=== PATIENT | male | born 1975 | race Caucasian/White ===

== ENCOUNTER 2022-04-06 10:45 | Inpatient (IN) | payer BC ==
[2022-04-09] MEDS ORDERED: Celecoxib 200 MG Cap PO ONE (08:30)
[2022-04-09] MEDS ORDERED: Acetaminophen 500 MG Tab PO ONE (08:30)
[2022-04-09] MEDS ORDERED: Dextrose 5%-Lactated Ringers 1,000 ML IV SCH (08:45)
[2022-04-09] MEDS ORDERED: Scopolamine 1.5 MG Transdermal Patch TOP SCH (08:45)
[2022-04-09] MEDS ORDERED: cefOXitin 2 GM in Sodium Chloride 0.9% 50 ML IV ONE (08:45)
[2022-04-09] MEDS: cefOXitin 2 GM Vial ONE ×3 (09:37→12:00)
[2022-04-09] MEDS ORDERED: fentaNYL 250 MCG/5 ML SDV ONE ×2 (09:42→10:45)
[2022-04-09] MEDS ORDERED: Glycopyrrolate 0.2 MG/ML 5 ML MDV ONE (09:43)
[2022-04-09] MEDS ORDERED: Ondansetron 4 MG/2 ML SDV ONE (09:43)
[2022-04-09] MEDS ORDERED: Propofol 200 MG/20 ML SDV ONE (09:43)
[2022-04-09] MEDS ORDERED: Dexamethasone 4 MG/ML SDV ONE (09:43)
[2022-04-09] MEDS ORDERED: Neostigmine Methylsulfate 1 MG/ML 5 ML Syringe ONE (09:43)
[2022-04-09] MEDS ORDERED: Rocuronium 50 MG/5 ML Vial ONE ×2 (09:43→10:43)
[2022-04-09] MEDS ORDERED: Succinylcholine 200 MG/10 ML MDV ONE (09:43)
[2022-04-09 09:45] LABS: ESTIMATED GFR 93 mL/min (>60)
[2022-04-09] MEDS ORDERED: Ketamine 21 MG in Sodium Chloride 0.9% 19.79 ML IV SCH (10:15)
[2022-04-09] MEDS ORDERED: Ketamine 500 MG/5 ML MDV IV SCH (10:15)
[2022-04-09] MEDS ORDERED: Sugammadex Sodium 200 MG/2 ML VIAL ONE (10:25)
[2022-04-09] MEDS ORDERED: Glucagon,Human Recombinant 1 MG Vial ONE (10:40)
[2022-04-09] MEDS ORDERED: Labetalol 20 MG/4 ML Syringe ONE (11:16)
[2022-04-09] MEDS ORDERED: Lactated Ringers 1,000 ML ONE (11:17)
[2022-04-09] MEDS ORDERED: hydrOXYzine HCL 100 MG/2 ML SDV IM ONE (12:52)
[2022-04-09] MEDS ORDERED: fentaNYL 50 MCG/ML SDV IVPUSH ONE (12:52)
[2022-04-09] MEDS ORDERED: Cyclobenzaprine 10 MG Tab PO PRN (14:24)
[2022-04-09] MEDS ORDERED: HYDROmorphone 1 MG/ML Syringe IV PRN (14:30)
[2022-04-09] MEDS ORDERED: Labetalol 20 MG/4 ML Syringe IVPUSH PRN (14:30)
[2022-04-09] MEDS ORDERED: Ondansetron 4 MG/2 ML SDV IVPUSH PRN (14:30)
[2022-04-09] MEDS ORDERED: Metoclopramide 10 MG/2 ML SDV IVPUSH PRN (14:30)
[2022-04-09] MEDS ORDERED: diphenhydrAMINE 50 MG/ML SDV IVPUSH PRN (14:30)
[2022-04-09] MEDS ORDERED: Albuterol/Ipratropium 3.0-0.5 MG/3 ML Neb Soln INH PRN (14:30)
[2022-04-09] MEDS ORDERED: hydrOXYzine HCL 100 MG/2 ML SDV IM PRN (14:30)
[2022-04-09] MEDS ORDERED: HYDROmorphone 0.5 MG/0.5 ML Syringe IVPUSH PRN (14:30)
[2022-04-09] MEDS ORDERED: Acetaminophen 500 MG Tab PO PRN (14:30)
[2022-04-09] MEDS ORDERED: Nitroglycerin 0.4 MG Tab.SL SL PRN (14:34)
[2022-04-09] MEDS: Albuterol/Ipratropium 3.0-0.5 MG/3 ML Neb Soln INH SCH ×2 (14:38→20:55)
[2022-04-09] MEDS ORDERED: Lactated Ringers 1,000 ML IV SCH (14:45)
[2022-04-09] MEDS: Dextrose 5%-Lactated Ringers 1,000 ML IV SCH ×2 (15:37→20:06)
[2022-04-09] MEDS: cefOXitin 2 GM in Sodium Chloride 0.9% 50 ML IV SCH ×2 (15:37→21:23)
[2022-04-09] MEDS ORDERED: MVI, Adult with Vitamin K 10 ML, Thiamine 200 MG, Zinc/Copper/Manganese/Selenium 1 ML i... IV SCH ×4 (16:00)
[2022-04-09] MEDS ORDERED: Pantoprazole 40 MG Vial IVPUSH SCH (16:00)
[2022-04-09] MEDS: Heparin Sodium 5,000 Units/ML Vial SUBCUT SCH (17:58)
[2022-04-09] MEDS: Acetaminophen 500 MG Tab PO SCH (21:11)
[2022-04-09] MEDS: atorvaSTATin 20 MG Tab PO SCH (21:12)
[2022-04-10] MEDS: Heparin Sodium 5,000 Units/ML Vial SUBCUT SCH ×3 (03:02→18:44)
[2022-04-10] MEDS: cefOXitin 2 GM in Sodium Chloride 0.9% 50 ML IV SCH ×4 (03:06→21:36)
[2022-04-10] MEDS ORDERED: Iopamidol 612 MG/ML 50 ML SDV PO ONE (04:47)
[2022-04-10 05:31] LABS: ESTIMATED GFR 68 mL/min (>60)
[2022-04-10] MEDS: Acetaminophen 500 MG Tab PO SCH ×3 (06:13→21:27)
[2022-04-10] MEDS: Albuterol/Ipratropium 3.0-0.5 MG/3 ML Neb Soln INH SCH ×4 (07:32→21:30)
[2022-04-10] MEDS: Losartan 50 MG Tab PO SCH (08:41)
[2022-04-10] MEDS: Spironolactone 25 MG Tab PO SCH (08:41)
[2022-04-10] MEDS: Celecoxib 200 MG Cap PO SCH ×2 (08:41→21:27)
[2022-04-10] MEDS: Carvedilol 3.125 MG Tab PO SCH ×2 (08:41→21:27)
[2022-04-10] MEDS: SCOPOLAMINE PATCH CHECK TOP SCH (08:42)
[2022-04-10] MEDS: Lactated Ringers 1,000 ML IV SCH (14:24)
[2022-04-10] MEDS ORDERED: MVI, Adult with Vitamin K 10 ML, Thiamine 200 MG, Zinc/Copper/Manganese/Selenium 1 ML i... IV SCH ×4 (16:00)
[2022-04-10] MEDS: Pantoprazole 40 MG Tab.CR PO SCH (18:33)
[2022-04-10] MEDS ORDERED: traMADol 50 MG Tab PO PRN (20:25)
[2022-04-10] MEDS ORDERED: oxyCODONE 5 MG Tab PO PRN (20:26)
[2022-04-10] MEDS: atorvaSTATin 20 MG Tab PO SCH (21:27)
[2022-04-11] MEDS: Heparin Sodium 5,000 Units/ML Vial SUBCUT SCH ×3 (02:50→17:49)
[2022-04-11] MEDS: Lactated Ringers 1,000 ML IV SCH (02:53)
[2022-04-11] MEDS: cefOXitin 2 GM in Sodium Chloride 0.9% 50 ML IV SCH ×2 (03:01→10:03)
[2022-04-11] MEDS: Acetaminophen 500 MG Tab PO SCH ×3 (06:21→22:11)
[2022-04-11] MEDS: Albuterol/Ipratropium 3.0-0.5 MG/3 ML Neb Soln INH SCH ×5 (07:38→22:23)
[2022-04-11] MEDS: Carvedilol 3.125 MG Tab PO SCH ×2 (08:31→22:11)
[2022-04-11] MEDS: Celecoxib 200 MG Cap PO SCH ×2 (08:31→22:11)
[2022-04-11] MEDS: Spironolactone 25 MG Tab PO SCH (08:31)
[2022-04-11] MEDS: Losartan 50 MG Tab PO SCH (08:31)
[2022-04-11] MEDS: SCOPOLAMINE PATCH CHECK TOP SCH (08:32)
[2022-04-11] MEDS ORDERED: Cyanocobalamin (Vitamin B12) 1,000 MCG/ML SDV IM ONE (09:00)
[2022-04-11] MEDS: Pantoprazole 40 MG Tab.CR PO SCH (17:50)
[2022-04-11] MEDS: atorvaSTATin 20 MG Tab PO SCH (22:11)
[2022-04-12] MEDS: Heparin Sodium 5,000 Units/ML Vial SUBCUT SCH (02:10)
[2022-04-12] MEDS: Acetaminophen 500 MG Tab PO SCH (05:53)
[2022-04-12] MEDS: Albuterol/Ipratropium 3.0-0.5 MG/3 ML Neb Soln INH SCH ×2 (07:29→10:58)
[2022-04-12] MEDS: Carvedilol 3.125 MG Tab PO SCH (08:41)
[2022-04-12] MEDS: Losartan 50 MG Tab PO SCH (08:42)
[2022-04-12] MEDS: Celecoxib 200 MG Cap PO SCH (08:42)
[2022-04-12] MEDS: Spironolactone 25 MG Tab PO SCH (08:43)
[2022-04-12] MEDS: Rivaroxaban 10 MG Tab PO ONE ×2 (11:46→13:20)
== END 2022-04-12 12:00 | disposition home or self-care (01) | DRG 403 ==
LOC: JP.SDSSCHI 04-09 08:33 → JP.SDS 04-09 08:34 → EDSTATUS 04-09 09:30 → JP.MS 04-09 12:30
PROVIDERS: ADMIT Surgery; ATTEND Surgery
PROC: 0DB64Z3 Excision of Stomach, Percutaneous Endoscopic Approach, Vertical (ICD-10-PCS; principal; 2022-04-09)
PROC: 0FB24ZX Excision of Left Lobe Liver, Percutaneous Endoscopic Approach, Diagnostic (ICD-10-PCS; 2022-04-09)
PROC: 0BQT4ZZ Repair Diaphragm, Percutaneous Endoscopic Approach (ICD-10-PCS; 2022-04-09)
DX: E66.01 Morbid (severe) obesity due to excess calories (principal); Z68.44 Body mass index [BMI] 60.0-69.9, adult; E11.9 Type 2 diabetes mellitus without complications; I10 Essential (primary) hypertension; R26.9 Unspecified abnormalities of gait and mobility; R16.0 Hepatomegaly, not elsewhere classified; I25.10 Atherosclerotic heart disease of native coronary artery without angina pectoris; K44.9 Diaphragmatic hernia without obstruction or gangrene; Z86.718 Personal history of other venous thrombosis and embolism; Z79.01 Long term (current) use of anticoagulants; I25.2 Old myocardial infarction; Z88.8 Allergy status to other drugs, medicaments and biological substances; Z87.891 Personal history of nicotine dependence
CPT/HCPCS: 36415; 74240; 74240-26; 80053; 82947; 83735; 83880; 84100; 85025; 85027; 86850; 86900; 86901; 94640; A9270-GY; C9113; J0171; J0330; J0694; J1100; J1170; J1610; J1644; J2405; J2704; J2710; J2795; J3010; J3410; J3411; J3420; J3490; J7120; J7121; J7620; Q9967

== ENCOUNTER 2023-02-22 07:32 | Inpatient (IN) | payer BC ==
[~2023-02-22 07:32] MED LIST: Dexamethasone 4 MG/ML SDV ONE; Glycopyrrolate 0.2 MG/ML 5 ML MDV ONE; Neostigmine Methylsulfate 1 MG/ML 5 ML Syringe ONE; Ondansetron 4 MG/2 ML SDV ONE; Propofol 200 MG/20 ML SDV ONE; Rocuronium 50 MG/5 ML Vial ONE; Succinylcholine 200 MG/10 ML MDV ONE; cefOXitin 2 GM Vial ONE; fentaNYL 250 MCG/5 ML SDV ONE
[2023-02-22] MEDS ORDERED: Celecoxib 200 MG Cap PO ONE (07:45)
[2023-02-22] MEDS ORDERED: Scopolamine 1.5 MG Transdermal Patch TOP SCH (07:45)
[2023-02-22 07:53] LABS: HEMATOCRIT 45.5 % (38.4-49.7); HEMOGLOBIN 15.3 g/dL (12.9-16.9); MEAN CORPUSCULAR HEMOGLOBIN 28.7 pg (31.6-35.5); MEAN CORPUSCULAR HGB CONC 33.6 g/dL (31.6-35.5); MEAN CORPUSCULAR VOLUME 85.2 fL (81.4-99.0); RED BLOOD CELL COUNT 5.34 M/uL (4.14-5.76); WHITE BLOOD CELL COUNT,WBC 6.7 K/uL (3.2-11.0)
[2023-02-22] MEDS ORDERED: Dextrose 5%-Lactated Ringers 1,000 ML IV SCH (08:30)
[2023-02-22] MEDS ORDERED: cefOXitin 2 GM in Sodium Chloride 0.9% 50 ML IV ONE (09:00)
[2023-02-22] MEDS ORDERED: Ketamine 500 MG/5 ML MDV IV SCH (09:00)
[2023-02-22] MEDS ORDERED: Ketamine 21 MG in Sodium Chloride 0.9% 19.79 ML IV SCH (09:00)
[2023-02-22] MEDS ORDERED: Propofol 200 MG/20 ML SDV ONE (13:10)
[2023-02-22] MEDS ORDERED: fentaNYL 250 MCG/5 ML SDV ONE ×2 (13:41→14:40)
[2023-02-22] MEDS ORDERED: Lactated Ringers 1,000 ML ONE ×2 (14:01→14:49)
[2023-02-22] MEDS ORDERED: Labetalol 20 MG/4 ML Syringe ONE (15:05)
[2023-02-22] MEDS ORDERED: Cyclobenzaprine 10 MG Tab PO PRN (16:21)
[2023-02-22] MEDS: SCOPOLAMINE PATCH CHECK TOP SCH (16:41)
[2023-02-22] MEDS ORDERED: hydrOXYzine HCL 100 MG/2 ML SDV IM PRN (17:00)
[2023-02-22] MEDS ORDERED: oxyCODONE 5 MG Tab PO PRN (17:00)
[2023-02-22] MEDS ORDERED: Labetalol 20 MG/4 ML Syringe IVPUSH PRN (17:00)
[2023-02-22] MEDS ORDERED: Losartan 50 MG Tab PO SCH (17:00)
[2023-02-22] MEDS ORDERED: Acetaminophen 500 MG Tab PO PRN (17:00)
[2023-02-22] MEDS ORDERED: traMADol 50 MG Tab PO PRN (17:00)
[2023-02-22] MEDS ORDERED: HYDROmorphone 0.5 MG/0.5 ML Syringe IVPUSH PRN (17:00)
[2023-02-22] MEDS ORDERED: Ondansetron 4 MG/2 ML SDV IVPUSH PRN (17:00)
[2023-02-22] MEDS ORDERED: Pantoprazole 40 MG Vial IVPUSH SCH (17:00)
[2023-02-22] MEDS ORDERED: diphenhydrAMINE 50 MG/ML SDV IVPUSH PRN (17:00)
[2023-02-22] MEDS ORDERED: Metoclopramide 10 MG/2 ML SDV IVPUSH PRN (17:00)
[2023-02-22] MEDS ORDERED: HYDROmorphone 1 MG/ML Syringe IV PRN (17:00)
[2023-02-22] MEDS: MVI, Adult with Vitamin K 10 ML, Thiamine 200 MG, Zinc/Copper/Manganese/Selenium 1 ML i... IV SCH ×4 (17:19)
[2023-02-22] MEDS: cefOXitin 2 GM in Sodium Chloride 0.9% 50 ML IV SCH (19:55)
[2023-02-22] MEDS: Heparin Sodium 5,000 Units/ML Vial SUBCUT SCH (19:57)
[2023-02-22] MEDS: atorvaSTATin 20 MG Tab PO SCH (20:03)
[2023-02-22] MEDS: Acetaminophen 500 MG Tab PO SCH (21:29)
[2023-02-22] MEDS: Lactated Ringers 1,000 ML IV SCH (23:38)
[2023-02-23] MEDS: cefOXitin 2 GM in Sodium Chloride 0.9% 50 ML IV SCH ×4 (01:59→20:58)
[2023-02-23] MEDS: Heparin Sodium 5,000 Units/ML Vial SUBCUT SCH ×3 (03:59→21:00)
[2023-02-23] MEDS ORDERED: Iopamidol 612 MG/ML 30 ML SDV PO ONE (04:39)
[2023-02-23] MEDS: Acetaminophen 500 MG Tab PO SCH ×3 (05:17→21:11)
[2023-02-23] MEDS: Lactated Ringers 1,000 ML IV SCH ×3 (06:54→23:30)
[2023-02-23] MEDS ORDERED: Ondansetron 4 MG Tab.DIS PO PRN (08:23)
[2023-02-23] MEDS ORDERED: hydrOXYzine HCl 25 MG Tab PO PRN (08:26)
[2023-02-23] MEDS ORDERED: Dextrose 5%-Lactated Ringers 1,000 ML IV SCH ×2 (08:30→18:00)
[2023-02-23] MEDS: SCOPOLAMINE PATCH CHECK TOP SCH (08:54)
[2023-02-23] MEDS: Spironolactone 25 MG Tab PO SCH (08:56)
[2023-02-23] MEDS: Celecoxib 200 MG Cap PO SCH ×2 (08:57→21:11)
[2023-02-23] MEDS: Aspirin 81 MG Tab.EC PO SCH (08:58)
[2023-02-23] MEDS: Losartan 50 MG Tab PO SCH (08:58)
[2023-02-23] MEDS ORDERED: Tamsulosin 0.4 MG Cap.ER PO ONE (13:20)
[2023-02-23] MEDS ORDERED: Pantoprazole 40 MG Delayed-Release Granules 1 Packet PO SCH (16:30)
[2023-02-23] MEDS: MVI, Adult with Vitamin K 10 ML, Thiamine 200 MG, Zinc/Copper/Manganese/Selenium 1 ML i... IV SCH ×4 (17:11)
[2023-02-23] MEDS: Tamsulosin 0.4 MG Cap.ER PO SCH (17:13)
[2023-02-23] MEDS ORDERED: Lactated Ringers 1,000 ML IV SCH (18:00)
[2023-02-23] MEDS: atorvaSTATin 20 MG Tab PO SCH (21:11)
[2023-02-24] MEDS: cefOXitin 2 GM in Sodium Chloride 0.9% 50 ML IV SCH (02:20)
[2023-02-24] MEDS: Heparin Sodium 5,000 Units/ML Vial SUBCUT SCH (04:57)
[2023-02-24] MEDS: Acetaminophen 500 MG Tab PO SCH (05:06)
[2023-02-24] MEDS: Losartan 50 MG Tab PO SCH (08:36)
[2023-02-24] MEDS: Tamsulosin 0.4 MG Cap.ER PO SCH (08:36)
[2023-02-24] MEDS: Celecoxib 200 MG Cap PO SCH (08:36)
[2023-02-24] MEDS: Cyanocobalamin (Vitamin B12) 1,000 MCG/ML SDV IM ONE ×2 (08:37→08:41)
[2023-02-24] MEDS: Spironolactone 25 MG Tab PO SCH (08:37)
[2023-02-24] MEDS: SCOPOLAMINE PATCH CHECK TOP SCH (08:37)
[2023-02-24] MEDS: Aspirin 81 MG Tab.EC PO SCH (08:37)
[2023-02-24] MEDS ORDERED: Apixaban 5 MG Tab PO SCH ×2 (09:00→12:00)
== END 2023-02-24 14:39 | disposition home or self-care (01) | DRG 405 ==
LOC: JP.SDSSCHI 07:32 → JP.MS 16:00 → JP.SDSSCHI 16:00
PROVIDERS: ADMIT Surgery; ATTEND Surgery
PROC: 0DB84ZZ Excision of Small Intestine, Percutaneous Endoscopic Approach (ICD-10-PCS; principal; 2023-02-22)
PROC: 0D1B4Z4 Bypass Ileum to Cutaneous, Percutaneous Endoscopic Approach (ICD-10-PCS; 2023-02-22)
DX: E66.01 Morbid (severe) obesity due to excess calories (principal); Z68.43 Body mass index [BMI] 50.0-59.9, adult; E11.9 Type 2 diabetes mellitus without complications; I10 Essential (primary) hypertension; I25.10 Atherosclerotic heart disease of native coronary artery without angina pectoris; E78.5 Hyperlipidemia, unspecified; G47.33 Obstructive sleep apnea (adult) (pediatric); E78.2 Mixed hyperlipidemia; Z86.718 Personal history of other venous thrombosis and embolism; I25.2 Old myocardial infarction; Z98.1 Arthrodesis status; Z98.890 Other specified postprocedural states; Z98.84 Bariatric surgery status; Z79.899 Other long term (current) drug therapy; Z88.8 Allergy status to other drugs, medicaments and biological substances; Z87.891 Personal history of nicotine dependence
CPT/HCPCS: 36415; 74240; 74240-26; 85027; 86850; 86900; 86901; 88307; A9270-GY; C9113; J0171; J0330; J0694; J1100; J1644; J2405; J2704; J2710; J2795; J3010; J3411; J3420; J3490; J7120; J7121; Q9967